=== PATIENT | male | born 1945 | race Caucasian/White ===

== ENCOUNTER 2016-08-22 05:40 | Emergency (ER) | payer MEDICARE, BC ==
[2016-08-22] MEDS ORDERED: Lidocaine 2% Jelly 10 ML Urojet MUCMEM ONE (06:05)
--- NOTE | 2016-08-22 06:12 | EDM.PDOC ---
ED HPI GENERAL MEDICAL PROBLEM - General Chief Complaint: Genitourinary Problem Stated Complaint: CAN'T URINATE Time Seen by Provider: 08/22/16 06:11 Source of Information: Reports: Patient, Family, RN Notes Reviewed History Limitations: Reports: No Limitations - History of Present Illness INITIAL COMMENTS - FREE TEXT/NARRATIVE: 70-year-old gentleman presents emergency department day complaint of difficulty with urination, he states it has progressively gotten worse over the last 24 hours denies any fevers nausea vomiting breath chest pubic area Pain Score (Numeric/FACES): 6 - Related Data Allergies Allergy/AdvReac Type Severity Reaction Status Date / Time No Known Allergies Allergy Verified 08/22/16 05:43 Home Meds: Home Meds Digoxin [Digoxin] 0.25 mg PO DAILY 12/13/12 [History] Gemfibrozil [Gemfibrozil] 600 mg PO DAILY 12/13/12 [History] Omeprazole 20 mg PO DAILY 12/13/12 [History] Propafenone [Rythmol] 150 mg PO TID 12/13/12 [History] Tamsulosin HCl [Flomax] 0.4 mg PO DAILY 12/13/12 [History] Warfarin [Jantoven] 5 mg PO DAILY 12/13/12 [History] Warfarin Sodium [Jantoven] 7.5 mg PO .QWED 01/10/14 [History] Past Medical History HEENT History: Reports: Impaired Vision Cardiovascular History: Reports: Afib, Hypertension, Other (See Below) Other Cardiovascular History: leaky valve Gastrointestinal History: Reports: Hemorrhoids Genitourinary History: Reports: BPH, Other (See Below) Other Genitourinary History: urinary frequency Musculoskeletal History: Reports: Arthritis Psychiatric History: Reports: Anxiety - Infectious Disease History Infectious Disease History: Reports: Chicken Pox, Measles, Mumps, Rubella, Shingles - Past Surgical History HEENT Surgical History: Reports: None Cardiovascular Surgical History: Reports: None Respiratory Surgical History: Reports: None GI Surgical History: Reports: Colonoscopy Musculoskeletal Surgical History: Reports: None Social & Family History - Tobacco Use Smoking Status *Q: Never Smoker Second Hand Smoke Exposure: No - Caffeine Use Caffeine Use: Reports: Soda - Alcohol Use Days Per Week of Alcohol Use: 0 - Recreational Drug Use Recreational Drug Use: No ED ROS GENERAL - Review of Systems Review Of Systems: See Below Constitutional: Denies: Fever, Chills Respiratory: Reports: No Symptoms Cardiovascular: Reports: No Symptoms GI/Abdominal: Reports: Abdominal Pain (Suprapubic) : Reports: Dysuria, Incontinence ED EXAM, RENAL/ - Physical Exam Exam: See Below Exam Limited By: No Limitations General Appearance: Alert, WD/WN, No Apparent Distress GI/Abdominal: Soft, Tender (Suprapubic) Back Exam: No: CVA Tenderness (R), CVA Tenderness (L) Course - Vital Signs Last Recorded V/S: Last Vital Signs Temp 96.4 F 08/22/16 05:53 Pulse 87 08/22/16 05:53 Resp 20 08/22/16 05:53 BP 181/103 H 08/22/16 05:53 Pulse Ox 93 L 08/22/16 05:53 - Orders/Labs/Meds Orders: Active Orders 24 hr Category Date Time Status Bustos Catheter Insertion [Insert Urinary Catheter] [OM. Care 08/22/16 05:45 Ordered PC] Q24H Urinary Catheter Assessment [RC] ASDIRECTED Care 08/22/16 05:45 Active Labs: Laboratory Tests 08/22/16 Range/Units 06:02 Urine Color Yellow Urine Appearance Clear Urine pH 6.0 (4.5-8.0) Ur Specific [place] 1.015 (1.008-1.030) Urine Protein Negative (NEGATIVE) mg/dL Urine Glucose (UA) Normal (NEGATIVE) mg/dL Urine Ketones Negative (NEGATIVE) mg/dL Urine Occult Blood Negative (NEGATIVE) Urine Nitrite Negative (NEGAITVE) Urine Bilirubin Negative (NEGATIVE) Urine Urobilinogen Normal (NORMAL) mg/dL Ur Leukocyte Esterase Negative (NEGATIVE) Urine RBC 0-5 (0-5) Urine WBC Not seen (0-5) Ur Epithelial Cells Not seen Amorphous Sediment Not seen Urine Bacteria Not seen Urine Mucus Not seen Meds: Medications Discontinued Medications Generic Name Dose Route Start Last Admin Trade Name Freq PRN Reason Stop Dose Admin Lidocaine HCl 10 ml 08/22/16 06:05 Xylocaine 2% Jelly MUCMEM 08/22/16 06:06 ONETIME ONE Departure - Departure Time of Disposition: 06:36 Disposition: Home, Self-Care 01 Condition: Good Clinical Impression: Urinary retention - Discharge Information Forms: ED Department Discharge Additional Instructions: Continue your regular medications, please follow-up with your primary care provider in the next 2-3 days for reevaluation call return to the emergency department worsening of symptoms - My Orders Last 24 Hours: My Active Orders 08/22/16 05:45 Bustos Catheter Insertion [Insert Urinary Catheter] [OM.PC] Q24H Urinary Catheter Assessment [RC] ASDIRECTED - Assessment/Plan Last 24 Hours: My Active Orders 08/22/16 05:45 Bustos Catheter Insertion [Insert Urinary Catheter] [OM.PC] Q24H Urinary Catheter Assessment [RC] ASDIRECTED Plan: Assessment Acuity = acute Site and laterality = urinary retention Etiology = probably secondary to BPH Manifestations = none Location of injury = Home Lab values = urinalysis normal limits Plan Bustos catheter with leg bag placed him follow-up with his primary care 2-3 days for reevaluation Patient was in agreement with the plan all questions were answered, they were instructed to return to the emergency department or call for worsening symptoms. This note was dictated using [employer] voice recognition software please call with any questions.
[2016-08-22 07:05] VITALS: BP 143/71
== END 2016-08-22 07:08 | disposition home or self-care (01) ==
LOC: JP.ED 05:40
DX: R33.9 Retention of urine, unspecified (principal); H54.7 Unspecified visual loss; I48.91 Unspecified atrial fibrillation; I10 Essential (primary) hypertension; M19.90 Unspecified osteoarthritis, unspecified site; Z79.899 Other long term (current) drug therapy; Z79.01 Long term (current) use of anticoagulants
CPT/HCPCS: 51702; 81001; 99284; 99284-25

== ENCOUNTER 2017-01-16 08:30 | Day surgery (SDC) | payer MEDICARE, BC ==
[2017-01-16] MEDS ORDERED: Lactated Ringers 1,000 ML IV SCH (08:45)
[2017-01-16] MEDS ORDERED: Midazolam 1 MG/ML 2 ML SDV ONE (09:34)
[2017-01-16] MEDS ORDERED: fentaNYL 100 MCG/2 ML SDV ONE (09:34)
[2017-01-16] MEDS ORDERED: Propofol 200 MG/20 ML SDV ONE (09:34)
[2017-01-16 12:06] VITALS: BP 170/95
--- NOTE | 2017-01-16 12:55 | OR ---
DATE OF PROCEDURE: 01/16/2017 PREOPERATIVE DIAGNOSIS: History of adenomatous colon polyps. POSTOPERATIVE DIAGNOSES: 1. Small right colon polyp. 2. History of adenomatous colon polyps. PROCEDURES PERFORMED: Colonoscopy to the cecum with biopsy resection of small right colon polyp. SURGEON: Gustabo Aggarwal MD. ANESTHESIA: IV anesthesia with monitored anesthesia care. INDICATION: This 71-year-old white male is referred for a colonoscopy because of a history of adenomatous colon polyps. He says his last colonoscopic exam was done about three years ago. I counseled him for the procedure including risks and alternatives, and he gave his informed consent to proceed. DESCRIPTION OF PROCEDURE: The patient was placed in the left lateral decubitus position. IV anesthesia was administered by the Anesthesia Service. Time-out was held. A rectal exam was performed, which was unremarkable. The flexible video Olympus colonoscope was introduced through his anus, up his rectum, and out his colon, all the way to the cecum. Once the cecum was reached, the scope was slowly withdrawn, examining the mucosa throughout. In the right colon, we saw a small polyp, which was removed with the biopsy forceps. The scope was withdrawn further with no other lesions noted. The scope was retroflexed in the rectum with the distal rectum appearing unremarkable. The scope was straightened and removed. He tolerated the procedure well. Gustabo Aggarwal MD /[id number]
== END 2017-01-16 12:20 | disposition home or self-care (01) ==
LOC: JP.SDS 08:30
PROVIDERS: ATTEND Surgery
DX: Z12.11 Encounter for screening for malignant neoplasm of colon (principal); D12.6 Benign neoplasm of colon, unspecified; K21.9 Gastro-esophageal reflux disease without esophagitis; E11.9 Type 2 diabetes mellitus without complications; I48.91 Unspecified atrial fibrillation; Z86.010 Personal history of colon polyps
CPT/HCPCS: 45380; 88305; J2250; J2704; J3010; J7120

== ENCOUNTER 2019-07-19 06:54 | Day surgery (SDC) | payer MEDICARE, BC ==
[2019-07-19] MEDS ORDERED: Dextrose 5%-Lactated Ringers 1,000 ML IV SCH (07:30)
[2019-07-19] MEDS ORDERED: Propofol 200 MG/20 ML SDV ONE (07:42)
[2019-07-19] MEDS ORDERED: Midazolam 1 MG/ML 2 ML SDV ONE (07:42)
[2019-07-19] MEDS ORDERED: fentaNYL 100 MCG/2 ML SDV ONE (07:42)
[2019-07-19 10:24] VITALS: PULSE 57
[2019-07-19 10:49] VITALS: BP 167/103
--- NOTE | 2019-07-24 14:34 | OR ---
DATE OF PROCEDURE: 07/19/2019 SURGEON: Ry Alegria MD PREOPERATIVE DIAGNOSIS: History of colon polyps. POSTOPERATIVE DIAGNOSIS: Multiple cecal polyps with a larger polyp partially removed with remaining sessile polyp (pathology pending). OPERATIVE PROCEDURES: Flexible colonoscopy with polypectomy by snare technique x4. INDICATION: This is a 73-year-old male presenting with history of previous colon polyps. Plan is to proceed with a colonoscopy with polypectomy as indicated. Potential risks of the procedure including bleeding and perforation were discussed, and the patient wishes to proceed. DETAILS OF PROCEDURE: The patient was taken to the operating room and placed in a left lateral decubitus position. IV sedation was administered, after which the initial digital rectal exam was performed and was unremarkable. Colonoscope was then passed into the rectum with retroflexion revealing uncomplicated hemorrhoidal columns. The scope was eventually passed to the level of the cecum and the prep was quite good. To the level of cecum, there were no areas of diverticular disease or colitis. There were 4 polyps within the cecum. Three of these were quite small, removed and sent for histologic evaluation via the snare technique. There appeared to be what likely would be a large sessile polyp occupying roughly a quarter to a third of the circumference of the bowel. It was uncertain whether this might be simply a subcutaneous lipoma that was protruding versus a polypoid disease. Roughly, a grape-sized bit of tissue was then removed from this by means of snare technique and sent for histologic evaluation. Good hemostasis was noted, and the procedure then concluded. The plan will be to see the patient back next Monday. If the tissue and the sessile polyp, which was nicely documented photographically, is in fact polypoid tissue, then the patient would need to be undertaking a right colectomy. Ry Alegria MD /[id number]
== END 2019-07-19 10:55 | disposition home or self-care (01) ==
LOC: JP.SDS 06:54
PROVIDERS: ATTEND Surgery
DX: Z12.11 Encounter for screening for malignant neoplasm of colon (principal); D12.0 Benign neoplasm of cecum; K63.89 Other specified diseases of intestine; E66.9 Obesity, unspecified; E11.9 Type 2 diabetes mellitus without complications; Z86.010 Personal history of colon polyps; Z68.28 Body mass index [BMI] 28.0-28.9, adult
CPT/HCPCS: 45385; J2250; J2704; J3010; J7121; 88305

== ENCOUNTER 2019-12-20 06:51 | Day surgery (SDC) | payer MEDICARE, BC ==
[2019-12-20] MEDS ORDERED: Dextrose 5%-Lactated Ringers 1,000 ML IV SCH (07:00)
[2019-12-20] MEDS ORDERED: fentaNYL 100 MCG/2 ML SDV ONE (07:38)
[2019-12-20] MEDS ORDERED: Propofol 200 MG/20 ML SDV ONE (07:38)
[2019-12-20 10:33] VITALS: BP 155/86; PULSE 66
--- NOTE | 2019-12-22 10:20 | OR ---
DATE OF PROCEDURE: 12/20/2019 SURGEON: Ry Alegria MD PREOPERATIVE DIAGNOSIS: Recently identified ridge within the cecum. POSTOPERATIVE DIAGNOSIS: Stable appearance of raised ridge and cecum. OPERATIVE PROCEDURE: Flexible colonoscopy with biopsies of area of raised ridge on cecum. ANESTHESIA: IV sedation. INDICATION FOR PROCEDURE: A 74-year-old presenting with a colonoscopy in last July which showed an adenomatous polyp which was removed. Also, had a fairly elongated raised ridge within the cecum. Biopsies of this on the mucosal surface were consistent with and to establish stability of this, the patient is to undergo a followup colonoscopy at this point. Potential risks including bleeding and perforation were discussed and the patient wishes to proceed. DETAILS OF PROCEDURE: The patient was taken to the operating room and placed in a left lateral decubitus position. IV sedation was administered after which the initial digital rectal exam was performed and was unremarkable. Colonoscope was then passed eventually at the level of the cecum. The prep was quite good. The only abnormality noted was that of the ridge as seen in the July endoscopy. Photo documentation of this was obtained and compared to the picture obtained in July and there is no significant change in its overall appearance. Additional biopsies on the surface were then obtained and the procedure then concluded. Minimal bleeding from the biopsy sites was seen. Assuming that there are no worrisome pathologic findings on today's biopsies, would repeat the colonoscopy in 1 year given the patient's family history including a brother with colon carcinoma. Ry Alegria MD /[id number]
== END 2019-12-20 11:10 | disposition home or self-care (01) ==
LOC: JP.SDS 06:51
PROVIDERS: ATTEND Surgery
DX: D12.0 Benign neoplasm of cecum (principal); I48.91 Unspecified atrial fibrillation; E11.9 Type 2 diabetes mellitus without complications; E66.9 Obesity, unspecified; Z80.0 Family history of malignant neoplasm of digestive organs; Z68.31 Body mass index [BMI] 31.0-31.9, adult
CPT/HCPCS: 36415; 85610; J2704; J3010; J7121

== ENCOUNTER 2020-01-10 07:48 | Inpatient (IN) | payer MEDICARE, BC ==
[2020-01-10] MEDS ORDERED: fentaNYL 250 MCG/5 ML SDV ONE ×2 (07:50→10:42)
[2020-01-10] MEDS ORDERED: Dexamethasone 4 MG/ML SDV ONE (07:52)
[2020-01-10] MEDS ORDERED: Ondansetron 4 MG/2 ML SDV ONE (07:52)
[2020-01-10] MEDS ORDERED: fentaNYL 100 MCG/2 ML SDV ONE (07:52)
[2020-01-10] MEDS ORDERED: Neostigmine Methylsulfate 1 MG/ML 5 ML Syringe ONE (07:52)
[2020-01-10] MEDS ORDERED: Succinylcholine 200 MG/10 ML MDV ONE (07:52)
[2020-01-10] MEDS ORDERED: Propofol 200 MG/20 ML SDV ONE (07:52)
[2020-01-10] MEDS ORDERED: Glycopyrrolate 0.2 MG/ML 5 ML MDV ONE (07:52)
[2020-01-10] MEDS ORDERED: Rocuronium 50 MG/5 ML Vial ONE (07:52)
[2020-01-10] MEDS ORDERED: Sodium Chloride 0.9% 10 ML ONE (07:52)
[2020-01-10] MEDS ORDERED: Acetaminophen 500 MG Tab PO ONE (08:00)
[2020-01-10] MEDS ORDERED: Dextrose 5%-Lactated Ringers 1,000 ML IV SCH (08:30)
[2020-01-10] MEDS ORDERED: Midazolam 1 MG/ML 2 ML SDV ONE (08:53)
[2020-01-10] MEDS ORDERED: Meropenem 500 MG SDV ONE (09:09)
[2020-01-10] MEDS ORDERED: Lidocaine 1% with EPINEPHrine 1:100,000 50 ML MDV ONE (09:10)
[2020-01-10] MEDS ORDERED: Bupivacaine 0.5% 50 ML MDV ONE (09:10)
[2020-01-10] MEDS ORDERED: Naloxone 0.4 MG/ML SDV IVPUSH PRN ×2 (09:30→13:00)
[2020-01-10] MEDS: cefOXitin 2 GM in Sodium Chloride 0.9% 50 ML IV ONE ×2 (09:53→13:28)
[2020-01-10] MEDS ORDERED: Lisinopril 10 MG Tab PO ONE (12:45)
[2020-01-10] MEDS ORDERED: Naloxone 0.4 MG/ML SDV IV PRN (13:00)
[2020-01-10] MEDS ORDERED: diphenhydrAMINE 50 MG/ML SDV IVPUSH PRN (13:00)
[2020-01-10] MEDS ORDERED: Ondansetron 4 MG/2 ML SDV IVPUSH PRN (13:10)
[2020-01-10] MEDS ORDERED: hydrOXYzine HCL 100 MG/2 ML SDV IM PRN (13:17)
[2020-01-10] MEDS ORDERED: Scopolamine 1.5 MG Transdermal Patch TOP SCH (13:30)
[2020-01-10] MEDS: fentaNYL 2,500 MCG in Sodium Chloride 0.9% 200 ML EPIDUR SCH (13:32)
[2020-01-10] MEDS ORDERED: Pantoprazole 40 MG Vial IV SCH (15:00)
[2020-01-10] MEDS: cefOXitin 2 GM in Sodium Chloride 0.9% 50 ML IV SCH ×2 (16:02→21:23)
[2020-01-10] MEDS: Pantoprazole 40 MG Vial IV SCH (16:05)
[2020-01-10] MEDS ORDERED: Labetalol 20 MG/4 ML Syringe IVPUSH PRN ×2 (16:16→16:24)
[2020-01-10] MEDS ORDERED: Furosemide 20 MG/2 ML VIAL IVPUSH STA (19:46)
[2020-01-10] MEDS: Dextrose 5%-Lactated Ringers 1,000 ML IV SCH (19:51)
[2020-01-10] MEDS ORDERED: Benzocaine/Cetylpyridinium/Menthol Lozenge MUCMEM PRN (19:54)
[2020-01-10] MEDS: Tamsulosin 0.4 MG Cap.ER PO SCH (20:24)
[2020-01-11] MEDS: cefOXitin 2 GM in Sodium Chloride 0.9% 50 ML IV SCH ×2 (05:00→09:08)
[2020-01-11] MEDS: Lisinopril 10 MG Tab PO SCH (08:06)
[2020-01-11] MEDS: Citalopram 10 MG Tab PO SCH (08:07)
[2020-01-11] MEDS: Finasteride 5 MG Tab PO SCH (08:09)
[2020-01-11] MEDS ORDERED: VERIFY SCOP PATCH TOP SCH (09:00)
[2020-01-11] MEDS ORDERED: Potassium Chloride 20 MEQ Tab.ER PO ONE (09:00)
[2020-01-11] MEDS ORDERED: Furosemide 20 MG/2 ML VIAL IV ONE (09:00)
[2020-01-11] MEDS: Celecoxib 200 MG Cap PO SCH ×2 (09:01→20:17)
[2020-01-11] MEDS: Acetaminophen 500 MG Tab PO SCH ×3 (09:04→21:07)
[2020-01-11] MEDS: fentaNYL 2,500 MCG in Sodium Chloride 0.9% 200 ML EPIDUR SCH (10:32)
[2020-01-11] MEDS: Digoxin 125 MCG Tab PO SCH (12:56)
[2020-01-11] MEDS: Pantoprazole 40 MG Vial IV SCH (16:24)
[2020-01-11] MEDS: Dextrose 5%-Lactated Ringers 1,000 ML IV SCH (17:35)
[2020-01-11] MEDS: Tamsulosin 0.4 MG Cap.ER PO SCH (20:17)
[2020-01-12] MEDS: Dextrose 5%-Lactated Ringers 1,000 ML IV SCH ×3 (03:23→22:18)
[2020-01-12] MEDS: Acetaminophen 500 MG Tab PO SCH ×4 (03:25→21:01)
[2020-01-12] MEDS ORDERED: Meropenem 500 MG SDV ONE (06:21)
[2020-01-12] MEDS ORDERED: Bupivacaine 0.5% 50 ML MDV ONE (06:21)
[2020-01-12] MEDS ORDERED: Lidocaine 1% with EPINEPHrine 1:100,000 50 ML MDV ONE (06:21)
[2020-01-12] MEDS ORDERED: Propofol 200 MG/20 ML SDV ONE (07:18)
[2020-01-12] MEDS ORDERED: fentaNYL 100 MCG/2 ML SDV ONE (07:18)
[2020-01-12] MEDS ORDERED: Ropivacaine 50 ML, dexAMETHasone 8 MG, EPINEPHrine 0.4 MG, Sodium Chloride 0.9% 27.6 ML NERVRT SCH ×4 (08:00)
[2020-01-12] MEDS: Citalopram 10 MG Tab PO SCH (09:42)
[2020-01-12] MEDS: Celecoxib 200 MG Cap PO SCH ×2 (09:42→20:58)
[2020-01-12] MEDS: Lisinopril 10 MG Tab PO SCH (09:43)
[2020-01-12] MEDS: Finasteride 5 MG Tab PO SCH (09:50)
[2020-01-12] MEDS ORDERED: oxyCODONE 5 MG Tab PO PRN (09:51)
[2020-01-12] MEDS ORDERED: Furosemide 20 MG/2 ML VIAL IV ONE (10:15)
[2020-01-12] MEDS ORDERED: Potassium Chloride 20 MEQ Tab.ER PO ONE (10:15)
--- NOTE | 2020-01-12 12:08 | PN ---
DATE OF SERVICE: 01/11/2020 The patient has been afebrile with stable vital signs. The pain control is quite good with the epidural catheter. We will leave that infusion as is for now. We will add some Celebrex and Tylenol to the equation today and try to get that tomorrow along with a delayed primary closure. His BNP is up somewhat at 1932 and we will give him some IV Lasix and otherwise back down on the IV rate to 100 mL/h. The creatinine did bump up slightly from 1.2 to 1.4, but urine output has been satisfactory. We will give him some IV Lasix at this point. Given this, we will give him some oral potassium supplementation as well and plan to proceed with delayed primary closure tomorrow. Ry Alegria MD /[id number]
[2020-01-12] MEDS: Digoxin 125 MCG Tab PO SCH (13:06)
[2020-01-12] MEDS: Pantoprazole 40 MG Vial IV SCH (16:30)
[2020-01-12] MEDS ORDERED: Magnesium Hydroxide 400 MG/5 ML Susp 30 ML Cup PO ONE (17:00)
[2020-01-12] MEDS ORDERED: Magnesium Hydroxide 400 MG/5 ML Susp 30 ML Cup PO PRN (18:30)
[2020-01-12] MEDS: Tamsulosin 0.4 MG Cap.ER PO SCH (20:58)
[2020-01-13] MEDS: Acetaminophen 500 MG Tab PO SCH ×4 (05:41→21:27)
--- NOTE | 2020-01-13 07:50 | PN ---
DATE OF SERVICE: 01/12/2020 The patient has been afebrile with stable vital signs. No major problems were noted overnight. Has been tolerating a diet. No bowel movement as of yet. The plan will be to proceed with delayed primary closure today. We will discontinue the epidural catheter and infusion, then offer oxycodone in addition to the Celebrex and Tylenol, which are scheduled. His BNP remains somewhat elevated, overall looked better than yesterday. We will give him Lasix this morning with some supplemental potassium. Otherwise, we will maximize activity and work with pulmonary toilet, and the SERAFIN drain and Bustos catheter will be coming out today. Ry Alegria MD /[id number]
[2020-01-13] MEDS: Citalopram 10 MG Tab PO SCH (08:31)
[2020-01-13] MEDS: Lisinopril 10 MG Tab PO SCH (08:31)
[2020-01-13] MEDS: Celecoxib 200 MG Cap PO SCH ×2 (08:31→21:25)
[2020-01-13] MEDS: Finasteride 5 MG Tab PO SCH (08:31)
--- NOTE | 2020-01-13 10:46 | PN ---
DATE OF SERVICE: 01/13/2020 SUBJECTIVE: Raul had some rectal bleeding that was kike red blood, then turned to old blood, then brown stools last evening, thought to be bleeding from the staple line. He is doing well this morning. Pain is controlled with Tylenol. Vital signs have been stable. Oral intake 1240. Urine output unable to collect due to frequent bowel movements; in the last 24 hours, he has had 6. SERAFIN drain put out 35 mL of a light pink drainage. REVIEW OF SYSTEMS: Remainder of review of systems negative for any pertinent positives and negatives. OBJECTIVE: GENERAL: Raul Bell is a pleasant 74-year-old male. He is alert and orientated. VITAL SIGNS: TPR is 97.4, 81, 18, blood pressure 167/90. HEENT: Negative. NECK: Supple. HEART: Regular rate and rhythm. LUNGS: Clear. ABDOMEN: Aquacel dressings on. EXTREMITIES: Without peripheral edema. ASSESSMENT: Exploratory laparotomy with: 1. Right colectomy. 2. Repair of incarcerated umbilical hernia. 3. Placement of Interceed mesh. POSTOPERATIVE DIAGNOSES: 1. Sessile polyp, cecum, and incarcerated umbilical hernia. Date of procedure 01/10/2020. 2. Delayed primary closure, 01/12/2020. PLAN: 1. Coumadin 10 mg p.o. today. 2. Daily PT/INR. 3. Check CBC, CMP, mag, and phos. 4. All bowel stimulation was discontinued. 5. Continue use of incentive spirometer. We will evaluate p.r.n. or in a.m. Sienna Ken PA-C /[id number]
[2020-01-13] MEDS ORDERED: Warfarin 5 MG Tab PO ONE (11:00)
[2020-01-13] MEDS: Digoxin 125 MCG Tab PO SCH (14:01)
[2020-01-13] MEDS ORDERED: Pantoprazole 40 MG Delayed-Release Granules 1 Packet PO SCH (16:30)
[2020-01-13] MEDS: Tamsulosin 0.4 MG Cap.ER PO SCH (21:27)
[2020-01-14] MEDS: Acetaminophen 500 MG Tab PO SCH ×2 (03:09→09:52)
[2020-01-14] MEDS: Potassium Phos in 0.9 % NaCl 15 MMOL in Premix Bag 1 BAG IV SCH ×4 (07:55→11:28)
[2020-01-14] MEDS: Citalopram 10 MG Tab PO SCH (08:02)
[2020-01-14] MEDS: Celecoxib 200 MG Cap PO SCH (08:02)
[2020-01-14] MEDS: Finasteride 5 MG Tab PO SCH (08:02)
[2020-01-14] MEDS: Lisinopril 10 MG Tab PO SCH (08:03)
[2020-01-14] MEDS ORDERED: Potassium Chloride 20 MEQ Tab.ER PO ONE (09:00)
[2020-01-14] MEDS ORDERED: Warfarin 2.5 MG Tab PO ONE (09:00)
[2020-01-14 12:26] VITALS: BP 138/70; PULSE 65
[2020-01-14] MEDS: Digoxin 125 MCG Tab PO SCH (12:26)
--- NOTE | 2020-01-14 21:25 | DISCH ---
ADMISSION DIAGNOSES: Sessile polyp, cecum; atrial fibrillation, on Coumadin long-term; type 2 diabetes. DISCHARGE DIAGNOSES: Exploratory laparotomy: 1. Right colectomy. 2. Repair of incarcerated umbilical hernia. 3. Placement of Interceed mesh. POSTOPERATIVE DIAGNOSES: 1. Sessile polyp, cecum, and incarcerated umbilical hernia. Date of procedure: 01/10/2020. Surgeon: Ry Alegria MD. 2. Delayed primary closure for open abdominal incision on 01/12/2020. Surgeon: Ry Alegria MD. HISTORY: Raul Bell is a pleasant 74-year-old male who had a colonoscopy with an adenomatous large polyp. After preoperative evaluation and discussion of possible risks and possible complications, he wished to proceed with surgical procedure. HOSPITAL COURSE: Raul had his surgery on 01/10/2020. He had no operative complications. He had a delayed primary closure on 01/12/2020. On 1st postop day, 01/11/2020, pain was controlled with an epidural catheter. He was treated with Celebrex and Tylenol, and had a delayed primary closure on 01/12/2020. On 01/12/2020, after delayed primary closure, the epidural catheter was discontinued and BNP was elevated, so he was given some Lasix and supplemental potassium. The SERAFIN drain and Bustos catheter were removed when he had a delayed primary closure. On 01/13/2020, he started having bowel movements. The bowel stimulation was discontinued. He did have some kike red and black stools, which did resolve to normal bowel movements. Anticoagulation therapy was started. He did have daily PT and INRs. Ambulation was good. Appetite was good. On 01/14/2020, he was able to be discharged to home after he received potassium supplement 60 mEq. His Aquacel dressing was replaced and he was given Coumadin 7.5 mg along with 30 millimoles of K-Phos. Raul was discharged to home with no complications and in stable condition. PHYSICAL EXAMINATION: GENERAL: Raul is a pleasant 74-year-old male. VITAL SIGNS: Height is 5 feet 11 inches, weight 223 pounds. TPR 97.1; 81; 18; blood pressure 154/71. HEENT: Negative. NECK: Supple. HEART: Regular rate and rhythm. LUNGS: Clear. ABDOMEN: Aquacel dressings on. Clean and intact. Abdominal binder is on. EXTREMITIES: Without peripheral edema. DISPOSITION: Discharged to home. CONDITION: Stable and improving. FOLLOWUP: Appointment with Ry Alegria MD, 01/22/2020 at 9:15 a.m. He is to come to the appointment at 8:45 to have BMP, INR, PT, and phos drawn. HOME MEDICATIONS: Citalopram, Celexa 10 mg daily, digoxin 0.25 mg oral daily, finasteride 5 mg oral daily; Flonase 2 sprays in each nostril p.r.n., omeprazole 20 mg p.o. daily, propafenone/Rythmol 150 mg oral 3 times a day, Flomax 0.4 mg oral daily, Coumadin 5 mg daily, gemfibrozil 600 mg oral daily, lisinopril 10 mg oral daily. DIET: Usual diet as tolerated. Drink 8 to 10 glasses of water a day. ACTIVITY: No lifting over 10 pounds for 6 weeks. OTHER ACTIVITY: Walk 6 times daily inside your home. Driving: Do not drive for 1 week. Shower/bathing: May shower. DISCHARGE INSTRUCTIONS: Notify provider if any fever, increased pain, swelling, redness, drainage, nausea, or vomiting. Keep site clean and dry. Take off Aquacel dressing in 3 days on 01/17/2020. Wear abdominal binder for 6 weeks if tolerated. SPECIAL INSTRUCTION: Use incentive spirometer 10 times every hour while awake for 1 week. /[id number]
--- NOTE | 2020-01-19 10:59 | OR ---
DATE OF PROCEDURE: 01/10/2020 SURGEON: Ry Alegria MD PREOPERATIVE DIAGNOSIS: Sessile polyp of cecum. POSTOPERATIVE DIAGNOSES: 1. Sessile polyp of cecum. 2. Incarcerated umbilical hernia. OPERATIVE PROCEDURES: Exploratory laparotomy with: 1. Right colectomy (88894). 2. Repair of incarcerated umbilical hernia (50954). 3. Placement of Interceed mesh to limit adhesion formation between the abdominopelvic wall and underlying viscera (25268). ANESTHESIA: General plus epidural. CHRISTIAN SCIENCE READER: Sienna Ken PA-C INDICATIONS FOR PROCEDURE: This is a 74-year-old recently underwent followup colonoscopy that showed a sessile lesion within the cecum. Previous biopsies of this were not adenomatous in nature, but the biopsies in this case came back showing a tubular adenoma. This measured roughly a quarter of the circumference of the cecum and there was an elongated sessile polyp and not amenable to endoscopic removal in a safe manner. Given this, the patient to undergo a right colectomy. Potential risks including bleeding, infection, leaks from various GI tract closures, possibility that there may be more advanced tumor then identified endoscopically were all gone over along with the remote possibility of cardiopulmonary, septic, or hemorrhagic complications leading to , and the patient wishes to proceed. DETAILS OF PROCEDURE: The patient was taken to the operating room and after epidural catheter was placed, a general endotracheal anesthetic was induced. A Bustos catheter was inserted and the abdomen prepped and draped. A low right subcostal incision was then made and carried down through the skin and subcutaneous tissue and through the peritoneal cavity. General exploration was undertaken. At this point, the patient was noted to have some palpable slightly firm and enlarged lymph nodes in the ileocolic chain likely related to the inflammation. Otherwise, there is no evidence of any metastatic disease and the cecum itself was highly immobile and the mass not readily palpable through the bowel wall. At this point, the peritoneal reflection of the distal small bowel, appendix, and right colon were then all divided allowing the right colon and distal small bowel to be mobilized medially with care taken to avoid injury to the underlying right ureter and duodenum. The distal small bowel was then divided with a MINERVA stapler as was the transverse colon just to the right of the middle colic vessels. The mesentery was then divided with MINERVA dante as well and the specimen delivered from the field. All the field was opened and the area of polyp formation in the cecum was identified and marked with a stitch to facilitate pathologic examination. At this point, the ileocolic anastomosis was accomplished with 2 internal firings of the Endo-MINERVA 60 mm staplers. The common opening was then closed transversely with the MINERVA dante as well and the angles anastomosed and mesenteric defect approximated with some 3-0 Vicryl stitch and the anastomosis reinforced with fibrin sealant as well. The patient was noted to have an incarcerated umbilical hernia containing some omentum. This was freed up and the hernia contents and hernia sac were then excised. The hernia was then repaired from within with a [id number] stitch of #2-0 Vicryl stitch. At that point, the abdomen was irrigated with antibiotic-containing saline solution. A single Vimal-Bueno drain was taken out through the right abdomen above the incision taken across the area of the anastomosis along the colic gutter and from there into the pelvis. The incision was then closed with 2 layers of #2-0 Vicryl stitch deep. The skin and subcutaneous tissue were felt to be at high risk for wound infection and of course primarily left open for delayed primary closure in 48 hours. Prior to closure of the fascia, the Interceed mesh was placed underneath the incision and from there down toward the pelvis to limit adhesion formation between those surfaces and the underlying viscera. The patient was taken to the recovery room in satisfactory condition. Physician social and human services assistant, Sienna Ken played an essential role in assisting in this case, helping to position the patient, retract structures as needed, as well as suturing and cutting sutures when indicated. Her presence improved patient safety and decreased the operative time. Ry Alegria MD /[id number]
--- NOTE | 2020-01-19 12:05 | OR ---
DATE OF PROCEDURE: 01/12/2020 SURGEON: Ry Alegria MD PREOPERATIVE DIAGNOSIS: Open abdominal incision. POSTOPERATIVE DIAGNOSIS: Open abdominal incision. OPERATIVE PROCEDURE: Delayed primary closure of open abdominal incision. ANESTHESIA: Local plus IV sedation. INDICATION FOR PROCEDURE: The patient is status post right colectomy 48 hours ago, and at that time, it was felt that the skin and subcutaneous tissue were high risk for wound infection. Given this, open for a planned delayed primary closure at this time. Potential risks including bleeding and infection were reviewed, and the patient wishes to proceed. DETAILS OF PROCEDURE: The patient was taken to the operating room, and after IV sedation was administered, the previous operative dressing was taken down and the wound inspected and found to be clean. The wound was then prepped and draped and anesthetized with 1% lidocaine and irrigated with meropenem-containing saline solution. Using ultrasound guidance, 2 transversus abdominis plane blocks were placed on the right side lateral to the incision, and the incision was then closed with 2 layers of 3-0 and 4-0 Vicryl stitch deep and dante for the skin. A dressing was applied. The patient was taken to the recovery room in satisfactory condition. Ry Alegria MD /[id number]
== END 2020-01-14 15:00 | disposition home or self-care (01) | DRG 330 ==
LOC: JP.SDSSCHI 07:48 → JP.SDS 07:48 → EDSTATUS 10:15 → JP.ICU 12:30 → JP.MS 01-12 14:02
PROVIDERS: ADMIT Surgery; ATTEND Surgery
PROC: 0DTH0ZZ Resection of Cecum, Open Approach (ICD-10-PCS; principal; 2020-01-10)
PROC: 0WUF0JZ Supplement Abdominal Wall with Synthetic Substitute, Open Approach (ICD-10-PCS; 2020-01-10)
PROC: 0WQFXZZ Repair Abdominal Wall, External Approach (ICD-10-PCS; 2020-01-10)
DX: D12.0 Benign neoplasm of cecum (principal); K42.0 Umbilical hernia with obstruction, without gangrene; I48.20 Chronic atrial fibrillation, unspecified; Z79.01 Long term (current) use of anticoagulants; E11.9 Type 2 diabetes mellitus without complications; Z79.4 Long term (current) use of insulin; Z96.641 Presence of right artificial hip joint; K21.9 Gastro-esophageal reflux disease without esophagitis; M16.11 Unilateral primary osteoarthritis, right hip; N40.0 Benign prostatic hyperplasia without lower urinary tract symptoms; F32.9 Major depressive disorder, single episode, unspecified; S31.109A Unspecified open wound of abdominal wall, unspecified quadrant without penetration into peritoneal cavity, initial encounter; Y83.8 Other surgical procedures as the cause of abnormal reaction of the patient, or of later complication, without mention of misadventure at the time of the procedure
CPT/HCPCS: 36415; 80048; 80053; 80162; 83735; 83880; 84100; 85027; 85610; 88302; 88309; 93005; 93010; A9270-GY; C9113; J0171; J0330; J0694; J1100; J1940; J2185; J2250; J2405; J2704; J2710; J2795; J3010; J3490; J7050; J7121

== ENCOUNTER 2020-08-04 06:11 | Inpatient (IN) | payer MEDICARE, BC ==
[2020-08-04] MEDS ORDERED: Bupivacaine 0.5%/EPINEPHrine 1:200,000 50 ML MDV ONE (06:56)
[2020-08-04] MEDS ORDERED: Meropenem 500 MG SDV ONE (06:57)
[2020-08-04] MEDS ORDERED: Acetaminophen 500 MG Tab PO ONE (09:15)
[2020-08-04] MEDS ORDERED: Finasteride 5 MG Tab PO ONE (09:40)
[2020-08-04] MEDS ORDERED: Digoxin 125 MCG Tab PO ONE (09:40)
[2020-08-04] MEDS ORDERED: Dextrose 5%-Lactated Ringers 1,000 ML IV SCH (09:45)
[2020-08-04] MEDS ORDERED: HYDROmorphone/Normal Saline 15 MG/30 ML PCA IV PRN ×2 (09:58→09:59)
[2020-08-04] MEDS ORDERED: Naloxone 0.4 MG/ML SDV IVPUSH PRN (09:58)
[2020-08-04] MEDS ORDERED: Naloxone 0.4 MG/ML SDV IV PRN (10:00)
[2020-08-04] MEDS ORDERED: ceFAZolin 2 GM in Sodium Chloride 0.9% 50 ML IV ONE (10:45)
[2020-08-04] MEDS ORDERED: ceFAZolin 2 GM in Premix Bag 1 BAG IV ONE (10:45)
[2020-08-04] MEDS ORDERED: Ondansetron 4 MG/2 ML SDV ONE (11:16)
[2020-08-04] MEDS ORDERED: Propofol 200 MG/20 ML SDV ONE (11:16)
[2020-08-04] MEDS ORDERED: Glycopyrrolate 0.2 MG/ML 5 ML MDV ONE (11:16)
[2020-08-04] MEDS ORDERED: Rocuronium 50 MG/5 ML Vial ONE (11:16)
[2020-08-04] MEDS ORDERED: Dexamethasone 4 MG/ML SDV ONE (11:16)
[2020-08-04] MEDS ORDERED: Succinylcholine 200 MG/10 ML MDV ONE (11:16)
[2020-08-04] MEDS ORDERED: Neostigmine Methylsulfate 1 MG/ML 5 ML Syringe ONE (11:16)
[2020-08-04] MEDS ORDERED: fentaNYL 250 MCG/5 ML SDV ONE (11:19)
[2020-08-04] MEDS ORDERED: Labetalol 20 MG/4 ML Syringe ONE (14:15)
[2020-08-04] MEDS ORDERED: Lactated Ringers 1,000 ML ONE (14:24)
[2020-08-04] MEDS ORDERED: hydrOXYzine HCL 100 MG/2 ML SDV IM PRN (15:49)
[2020-08-04] MEDS ORDERED: Ondansetron 4 MG/2 ML SDV IVPUSH PRN (15:49)
[2020-08-04] MEDS: Lisinopril 10 MG Tab PO SCH (16:28)
[2020-08-04] MEDS: Acetaminophen 500 MG Tab PO SCH ×2 (16:28→21:55)
[2020-08-04] MEDS: Warfarin 5 MG Tab PO SCH (17:55)
[2020-08-04] MEDS: Dextrose 5%-Lactated Ringers 1,000 ML IV SCH (19:38)
[2020-08-04] MEDS: Tamsulosin 0.4 MG Cap.ER PO SCH (21:55)
[2020-08-04] MEDS: ceFAZolin 2 GM in Premix Bag 1 BAG IV SCH (21:55)
[2020-08-05] MEDS: Dextrose 5%-Lactated Ringers 1,000 ML IV SCH (04:12)
[2020-08-05] MEDS: ceFAZolin 2 GM in Premix Bag 1 BAG IV SCH ×2 (05:09→13:03)
[2020-08-05] MEDS: Acetaminophen 500 MG Tab PO SCH ×4 (05:09→22:37)
[2020-08-05] MEDS: Pantoprazole 40 MG Tab.CR PO SCH (07:45)
[2020-08-05] MEDS ORDERED: HYDROmorphone 2 MG Tab PO PRN (08:08)
[2020-08-05] MEDS: Docusate Sodium 100 MG Cap PO SCH ×2 (09:03→20:27)
[2020-08-05] MEDS: Lisinopril 10 MG Tab PO SCH (09:03)
[2020-08-05] MEDS: Citalopram 10 MG Tab PO SCH (09:03)
[2020-08-05] MEDS: Gemfibrozil 600 MG Tab PO SCH (09:03)
[2020-08-05] MEDS: Bisacodyl 5 MG Tab PO SCH ×2 (09:03→20:28)
[2020-08-05] MEDS: Finasteride 5 MG Tab PO SCH (09:04)
[2020-08-05] MEDS ORDERED: Digoxin 125 MCG Tab PO SCH (13:00)
[2020-08-05] MEDS: Warfarin 5 MG Tab PO SCH (13:03)
--- NOTE | 2020-08-05 13:28 | PN ---
DATE OF SERVICE: 08/05/2020 SUBJECTIVE: Raul is postop day #1. His pain has been controlled. His oral intake adequate, output adequate. Bilirubin this morning is 1.1. BNP is 866 on admission. Remainder of review of systems negative for any pertinent positives and negatives. OBJECTIVE: GENERAL: Raul Bell is a pleasant 74-year-old male. He is alert and orientated. VITAL SIGNS: TPR is 96.7, 66, and 16. Blood pressure 158/87. HEENT: Negative. NECK: Supple. HEART: Regular rate and rhythm. LUNGS: Clear. ABDOMEN: Dressings dry and intact. He does have the pressure dressing over his former hernia site. EXTREMITIES: Without peripheral edema. ASSESSMENT: 1. Laparoscopic repair of incarcerated 1% wound hernia and recurrent umbilical hernia, and placement of Vicryl mesh for incarcerated 1% incisional hernia. 2. Recurrent umbilical hernia.Date 08/04/2020. Surgeon: Ry Alegria MD. PLAN: 1. 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 2. Dulcolax 10 mg p.o. b.i.d. scheduled. 3. Colace 100 mg p.o. b.i.d. scheduled. 4. Saline lock IV. 5. Dilaudid 2 to 4 mg every 4 hours p.r.n. pain. 6. Regular diet. 7. Dressing off, may shower. Replace the pressure dressing over former hernia site, which is a rolled up Kerlix and abdominal binder. 8. Continue use of incentive spirometer. 9. We will evaluate p.r.n. or in a.m. Sienna Ken PA-C /[id number]
--- NOTE | 2020-08-05 13:53 | PCM.EKG ---
#1 Interpretation EKG Date: 08/04/20 Time: 09:22 Rhythm: A-Fib Rate (Beats/Min): 68 [place]: Normal P-Wave: Variable QRS: Wide (Nonspecific intraventricular conduction delay) ST-T: Depressed (Mild depression in leads V4 through V6) QT: Normal ND/PQ Interval: n/a Comparison: No Change (Compared to 01/10/2020)
[2020-08-05] MEDS: Tamsulosin 0.4 MG Cap.ER PO SCH (20:28)
[2020-08-06] MEDS: Acetaminophen 500 MG Tab PO SCH (05:22)
[2020-08-06] MEDS: Pantoprazole 40 MG Tab.CR PO SCH (07:28)
[2020-08-06 07:48] VITALS: BP 152/84
[2020-08-06] MEDS: Docusate Sodium 100 MG Cap PO SCH (08:24)
[2020-08-06] MEDS: Gemfibrozil 600 MG Tab PO SCH (08:24)
[2020-08-06] MEDS: Finasteride 5 MG Tab PO SCH (08:24)
[2020-08-06 08:25] VITALS: PULSE 94
[2020-08-06] MEDS: Bisacodyl 5 MG Tab PO SCH (08:25)
[2020-08-06] MEDS: Citalopram 10 MG Tab PO SCH (08:25)
[2020-08-06] MEDS: Lisinopril 10 MG Tab PO SCH (08:25)
--- NOTE | 2020-08-06 12:06 | DISCH ---
ADMISSION DIAGNOSES: 1. Incisional hernia. 2. Umbilical hernia. 3. Atrial fibrillation, chronic anticoagulation therapy. 4. Hypertriglyceridemia. 5. Dyspepsia. 6. Benign prostatic hypertrophy. 7. Degenerative joint disease. 8. Type 2 diabetes without complication. 9. Sciatica. DISCHARGE DIAGNOSES: Laparoscopic repair of incarcerated incisional hernia and recurrent umbilical hernia and placement of Vicryl mesh. POSTOPERATIVE DIAGNOSES: 1. Incisional hernia. 2. Recurrent umbilical hernia. 3. Date of procedure 08/04/2020. Surgeon: Ry Alegria MD. HISTORY: aRul Bell is a 74-year-old male with incarcerated incisional hernia and umbilical hernia. After preoperative evaluation and discussion of possible risks and possible complications, He wished to proceed with surgical procedure. An EKG and troponin were done in the ACU prior to surgery due to complaint of left-sided chest pain. The EKG and troponin were normal, proceeded with surgical procedure. HOSPITAL COURSE: He had no operative complications. On postoperative day #1, he was changed to oral pain medications, started on bowel stimulation, and activity was good. He remained afebrile. On postoperative day #2, he was able to be discharged to home. Vital signs stable. Oral intake adequate. Output adequate. His pain was controlled with Tylenol, declined any thing stronger to be sent home with. PHYSICAL EXAMINATION: GENERAL: Raul Bell is a 74-year-old male. VITAL SIGNS: Height 6 feet 2 inches, weight is 230 pounds. TPR is 97.8, 87, 16. Blood pressure 155/85. HEENT: Negative. NECK: Supple. HEART: Regular rate and rhythm. LUNGS: Clear. ABDOMEN: Incisions look good. Sutures intact. He has a rolled up Kerlix dressing over hernia sites and abdominal binder is on. EXTREMITIES: Without peripheral edema. DISPOSITION: Discharged to home. CONDITION: Stable and improving. DISCHARGE MEDICATIONS: He is to resume home medications; Tylenol 1000 mg p.o. q.6 hours scheduled, finasteride 5 mg p.o. daily, digoxin 250 mcg p.o. daily, lisinopril 10 mg p.o. daily, Lopid 600 mg p.o. daily, Coumadin 5 mg p.o. daily, Flomax 0.4 mg p.o. daily, propafenone/Rythmol 150 mg p.o. t.i.d., omeprazole 20 mg p.o. daily, Flonase 2 sprays in each nostril daily, and Celexa 10 mg p.o. daily. FOLLOWUP APPOINTMENT: Sienna Ken PA-C, on 08/17/2020 at 10 a.m. at [facility]. DIET: Usual diet as tolerated, drink 8 to 10 glasses of water a day. ACTIVITY: No lifting greater than 10 pounds for 6 weeks. OTHER ACTIVITY: Walk 6 times daily inside your home. Driving, do not drive for 1 week. May shower. DISCHARGE INSTRUCTIONS: Keep operative site clean and dry. Wound incision care, wear rolled up Kerlix to act as a pressure dressing over former hernia site. Wear abdominal binder over the rolled up Kerlix. Notify provider if any fever, increased pain, swelling, redness, drainage, nausea, or vomiting. Use incentive spirometer 10 times every hour while awake for 1 week. /[id number]
--- NOTE | 2020-08-17 08:18 | OR ---
DATE OF PROCEDURE: 08/04/2020 SURGEON: Ry Alegria MD PREOPERATIVE DIAGNOSES: 1. Primary incarcerated incisional hernia. 2. Recurrent incarcerated umbilical hernia. POSTOPERATIVE DIAGNOSES: 1. Primary incarcerated incisional hernia. 2. Recurrent incarcerated umbilical hernia. OPERATIVE PROCEDURE: Diagnostic laparoscopy with: 1. Repair of a primary incarcerated incisional hernia with mesh (49200). 2. Repair of incarcerated recurrent umbilical hernia with mesh ([id number]). 3. Placement of Interceed mesh underlying presently placed mesh and adjacent abdominal wall and pelvis to limit recurrent adhesion formation (13727). ANESTHESIA: General. SUPERINTENDENT HOUSE: Sienna Ken PA-C INDICATIONS FOR PROCEDURE: The patient is status post a low right subcostal type incision used for right colectomy, presents now with new hernia located in the medial aspect of that, which was becoming progressively larger and somewhat more symptomatic. The plan is to proceed with a laparoscopic or if necessary open repair of that with mesh. Potential risks including bleeding, infection, injury to underlying viscera, or problems with mesh becoming infected or the hernia recurring were all gone over and the patient wishes to proceed. DESCRIPTION OF PROCEDURE: The patient was taken to the operating room and placed in a supine position. After general endotracheal anesthesia was induced, a Bustos catheter was inserted, and the abdomen prepped and draped. Beginning in the left lateral aspect, a transverse incision was made, and peritoneal cavity entered under direct vision with an Optiview trocar, inflated to 15 mmHg with CO2. Laparoscope was then reinserted. No underlying trocar insertion site injuries were seen. Following that 5 mm trocars were placed in the left upper quadrant and left lower quadrant. Initial examination showed there to be 2 hernias, one was recurrent umbilical hernia with that having been repaired from within at the time of the primary incision in the right abdomen. This contained some kind of incarcerated omentum. This was then dissected away from that surface. The most significant of the hernia was in medial aspect of the lower right subcostal type incision. This contained some incarcerated omentum as well, and this was dissected free along with significant amount of the hernia sac. Once the hernia sac was eliminated, the fascial defect was felt to be large and broad enough that primary fascial closure underlying this prior to the mesh placement would be appropriate. This was accomplished with a series of 0 Vicryl sutures placed laparoscopically and secured with Ti-knot device type clips. Once this mesh closure appeared to be satisfactory, the abdominal wall was measured out, and a Ventralight ST mesh measuring 20.5 cm in circular configuration appeared to cover the areas of the hernia repair quite well with a wide margin of normal fascia around that. This mesh was then soaked in antibiotic-containing saline solution and then placed into an intraperitoneal location. It was oriented such that the balloon inflation catheter was facing the abdominal wall, and a small stab wound over the center of the area where the mesh would be placed was made, and using suture grasper the balloon inflated, had to go up through the abdominal wall. This was inflated, which brought up the mesh up against the abdominal wall as well. This was then circumferentially fixed with absorbable tacking screws. During this phase, the pressure was taken down to 8 cm of water in the peritoneal cavity to allow a more satisfactory application of the vertical clips. Two 5 mm trocars needed to be placed on the right side of the abdomen in order to adequately secure the left side of the mesh. At that point, no further problems were noted. There appeared to be good circumferential fixation of the mesh in all areas and a good margin away from the fascial defects. To limit recurrent adhesion formation, Interceed mesh was then placed underneath the newly placed mesh and from there around the surrounding abdominal and pelvic wall. The trocars were then sequentially removed. The fascia at the 12 mm site was closed with 0 Vicryl stitch and the skin at each of these were sutured with 4-0 Vicryl stitch. The patient had received a bilateral transversus abdominis plane blocks prior to closure, and the incision was also anesthetized with 0.5% Marcaine. The patient was taken to the recovery room in satisfactory condition. Physician legal administrative assistant, Sienna Ken, played an essential role in assisting in this case, helping to position the patient, and retract structures as needed as well as suturing and cutting sutures when indicated. Her presence improved patient safety and decreased operative time. Ry Alegria MD /[id number]
== END 2020-08-06 09:56 | disposition home or self-care (01) | DRG 355 ==
LOC: JP.SDS 09:05 → JP.SDSSCHI 09:05 → EDSTATUS 13:45 → JP.MS 15:10
PROVIDERS: ADMIT Surgery; ATTEND Surgery
PROC: 0WUF4JZ Supplement Abdominal Wall with Synthetic Substitute, Percutaneous Endoscopic Approach (ICD-10-PCS; principal; 2020-08-04)
PROC: 0WUF4JZ Supplement Abdominal Wall with Synthetic Substitute, Percutaneous Endoscopic Approach (ICD-10-PCS; 2020-08-04)
PROC: 3E0M45Z Introduction of Adhesion Barrier into Peritoneal Cavity, Percutaneous Endoscopic Approach (ICD-10-PCS; 2020-08-04)
DX: K43.0 Incisional hernia with obstruction, without gangrene (principal); K42.9 Umbilical hernia without obstruction or gangrene; Z79.01 Long term (current) use of anticoagulants; I48.91 Unspecified atrial fibrillation; E78.1 Pure hyperglyceridemia; R10.13 Epigastric pain; N40.0 Benign prostatic hyperplasia without lower urinary tract symptoms; E11.9 Type 2 diabetes mellitus without complications; E66.9 Obesity, unspecified; D12.6 Benign neoplasm of colon, unspecified; Z79.899 Other long term (current) drug therapy; Z68.29 Body mass index [BMI] 29.0-29.9, adult
CPT/HCPCS: 36415; 80053; 80162; 83735; 83880; 84100; 84484; 85610; 88302; 93005; 94762; A9270-GY; C1781; J0171; J0330; J0690; J1100; J1170; J2020; J2185; J2405; J2704; J2710; J2795; J3010; J3490; J7120; J7121

== ENCOUNTER 2021-01-11 06:59 | Day surgery (SDC) | payer MEDICARE, BC ==
[2021-01-11] MEDS ORDERED: Propofol 200 MG/20 ML SDV ONE (07:06)
[2021-01-11] MEDS ORDERED: fentaNYL 100 MCG/2 ML SDV ONE (07:06)
[2021-01-11] MEDS ORDERED: Midazolam 1 MG/ML 2 ML SDV ONE (07:06)
[2021-01-11] MEDS: Dextrose 5%-Lactated Ringers 1,000 ML IV SCH (07:30)
[2021-01-11 08:58] VITALS: BP 140/77; PULSE 72
--- NOTE | 2021-01-12 09:11 | OR ---
DATE OF PROCEDURE: 01/11/2021 SURGEON: Harrison Fenton MD PROCEDURE: Colonoscopy. FINDINGS: 1. Normal colonic anastomosis. 2. Diverticulosis, mild, without evidence of diverticulitis or bleeding. COMPLICATIONS: None. BIBLICAL STUDIES PROFESSOR: None. ANESTHESIA: MAC. PREOPERATIVE DIAGNOSIS: History of right hemicolectomy due to significant polyps. POSTPROCEDURE DIAGNOSIS: History of right hemicolectomy due to significant polyps. RISKS: Risks, benefits, alternatives, and limitations including, but not limited to infection, bleeding, perforation, false positives and false negatives were explained to the patient and they wished to proceed. PROCEDURE IN DETAIL: Patient was placed in left lateral decubitus position. Digital rectal exam was performed without abnormalities. The scope was introduced and advanced atraumatically to the normal colonic anastomosis. A photo was taken. The scope was brought back to the ascending, transverse, descending colon, and retroflexed. No evidence of old or new blood. No masses. No polyps. Diverticulosis was described as mild, limited to sigmoid colon without evidence of diverticulitis or bleeding. Greater than 8 minutes was spent removing the scope. The prep was acceptable, approximately 90% luminal surface could be seen. Harrison Fenton MD /[id number]
== END 2021-01-11 09:33 | disposition home or self-care (01) ==
LOC: JP.SDS 06:59
PROVIDERS: ATTEND Surgery
DX: K57.30 Diverticulosis of large intestine without perforation or abscess without bleeding (principal); E11.9 Type 2 diabetes mellitus without complications; Z98.0 Intestinal bypass and anastomosis status; Z90.49 Acquired absence of other specified parts of digestive tract
CPT/HCPCS: 45378; J2250; J2704; J3010; J7121

== ENCOUNTER 2023-12-31 11:27 | Emergency (ER) | payer MEDICARE, BC ==
[2023-12-31] MEDS: Sodium Chloride 0.9% 1,000 ML IV ONE ×2 (13:05→14:20)
[2023-12-31 13:06] LABS: BASOPHILS PERCENT AUTO 0.3 % (0.1-1.3); EOSINOPHILS ABSOLUTE AUTO 0.12 K/uL (0.00-0.40); HEMATOCRIT 40.5 % (38.4-49.7); HEMOGLOBIN 13.6 g/dL (12.9-16.9); IMMATURE GRAN ABSOLUTE AUTO 0.03 K/uL (0.00-0.23); IMMATURE GRAN PERCENT AUTO 0.5 % (0.0-0.7); LYMPHOCYTES ABSOLUTE AUTO 0.76 K/uL (0.8-3.3); LYMPHOCYTES PERCENT AUTO 12.6 % (11.4-47.7); MEAN CORPUSCULAR HEMOGLOBIN 29.8 pg (31.6-35.5); MEAN CORPUSCULAR HGB CONC 33.6 g/dL (31.6-35.5); MEAN CORPUSCULAR VOLUME 88.6 fL (81.4-99.0); MONOCYTES ABSOLUTE AUTO 0.45 K/uL (0.20-0.90); MONOCYTES PERCENT AUTO 7.5 % (3.3-12.6); NEUTROPHILS ABSOLUTE AUTO 4.66 K/uL (1.0-7.6); NEUTROPHILS PERCENT AUTO 77.1 % (40.0-78.1); PLATELET COUNT,PLT 182 K/uL (130-375); RED BLOOD CELL COUNT 4.57 M/uL (4.14-5.76)
[2023-12-31] MEDS: Sodium Chloride 0.9% 10 ML Syringe FLUSH PRN (13:06)
[2023-12-31 13:13] LABS: BASOPHILS ABSOLUTE AUTO 0.02 K/uL (0.00-0.10)
[2023-12-31 13:28] LABS: ANION GAP 8.1 mmol/L (5.0-14.0); CALCIUM 9.5 mg/dL (8.5-10.1); CREATININE 1.4 mg/dL (0.8-1.3); EST CRCL DRUG DOSING (CG) 46.32 mL/min; POTASSIUM,K 3.6 mmol/L (3.6-5.2); TROPONIN I HIGH SENSITIVITY 16.7 pg/mL (<=60.3)
[2023-12-31 15:11] VITALS: BP 149/76; PULSE 68
== END 2023-12-31 17:08 | disposition home or self-care (01) ==
LOC: JP.ED 11:27
DX: I95.1 Orthostatic hypotension (principal); E78.00 Pure hypercholesterolemia, unspecified; K21.9 Gastro-esophageal reflux disease without esophagitis; E11.9 Type 2 diabetes mellitus without complications; Z79.899 Other long term (current) drug therapy
CPT/HCPCS: 36415; 70450; 80048; 83605; 84484; 85025; 93005; 96360; 96361; 99285; J3490; J7030; 93010; 99284